=== PATIENT | female | born 1970 | race Asian ===

== ENCOUNTER → 2019-10-04 | Outpatient (CLI) | payer OTHER | LOC: LAB 08:30 → LAB SHORT 08:30 | PROVIDERS: Student in an Organized Health Care Education/Training Program | DX: Z00.00 Encounter for general adult medical examination without abnormal findings (principal) | CPT/HCPCS: G0145 ==

== ENCOUNTER → 2024-12-09 | Outpatient (CLI) | payer OTHER ==
[2024-12-21 08:05] LABS: HPV HIGH RISK BY TMA Not Detected; HPV SOURCE Vaginal
== END ==
LOC: LAB SHORT 17:30 → LAB 17:30
PROVIDERS: Physician Assistant
DX: Z01.419 Encounter for gynecological examination (general) (routine) without abnormal findings (principal)
CPT/HCPCS: 87624; G0123